=== PATIENT | male | born 1975 | race Hispanic/Latino ===

== ENCOUNTER 2023-05-23 18:31 | Inpatient (IN) | payer OTHER ==
[~2023-05-23] VITALS: Ht 154.9 cm; Wt 34.7 kg
[~2023-05-23 18:31] MED LIST: SODIUM BICARB 8.4% 50ML SYRINGE IVP ONE
[2023-05-23 19:22] LABS: BASOPHILS # (AUTO) 0.01 K/uL (0.00-0.20); BASOPHILS % (AUTO) 0.1 % (0.0-5.0); EOSINOPHILS # (AUTO) 0.04 K/uL (0.00-0.70); EOSINOPHILS % (AUTO) 0.4 % (0.0-8.0); HEMATOCRIT 43.8 % (42-54); IMMATURE GRANULOCYTE ABSOLUTE 0.13 K/uL (0-1); LYMPHOCYTES # (AUTO) 0.9 K/uL (1.0-4.8); LYMPHOCYTES % (AUTO) 8.8 % (21.0-51.0); MEAN CORPUSCULAR HEMOGLOBIN 30.8 pg (27.0-33.0); MEAN CORPUSCULAR HGB CONC 34.9 g/dL (32.0-36.0); MEAN CORPUSCULAR VOLUME 88.1 fL (79-99); MONOCYTES # (AUTO) 0.8 K/uL (0.1-1.0); MONOCYTES % (AUTO) 7.3 % (3.0-13.0); NEUTROPHILS # (AUTO) 8.6 K/uL (1.8-7.7); NEUTROPHILS % (AUTO) 82.2 % (40.0-77.0); PLATELET COUNT (AUTO) 168 K/uL (130-400); RED BLOOD CELL COUNT(AUTO) 4.97 MIL/uL (4.50-6.20); RED CELL DISTRIBUTION WIDTH 11.9 % (11.0-15.5); WHITE BLOOD COUNT (AUTO) 10.4 K/uL (4.8-10.8)
[2023-05-23 19:31] LABS: ABG BASE EXCESS -20.9 mmol/L (-2.0-3.0); ABG HCO3 4.6 mmol/L (21.0-28.0); ABG OXYGEN SATURATION 95.4 % (95.0-99.0); ABG PCO2 < 15 mmHg (35-48); ABG PH 7.186 (7.35-7.450); DEVICE COMMENT RIGHT RAD; HHb 4.5; PO2, ARTERIAL BG 89.1 mmHg (83.0-108.0); VENT MODE, BG ROOM AIR (ROOM AIR)
[2023-05-23 19:47] LABS: ALANINE AMINOTRANSFERASE 33 U/L (12-78); ALBUMIN 3.6 g/dL (3.5-5.0); ASPARTATE AMINOTRANSFERASE 13 U/L (10-37); CREATININE 1.6 mg/dL (0.5-1.5); GLOMERULAR FILTR. RATE CALC 53 mL/min (>90); POTASSIUM 4.7 mmol/L (3.5-5.1); SODIUM SERUM 126 mmol/L (136-145); TOTAL PROTEIN, SERUM 6.9 g/dL (6.0-8.3); UREA NITROGEN, BLOOD 20 mg/dL (7-18)
[2023-05-23 19:48] LABS: CHLORIDE 90 mmol/L (101-111); GLUCOSE,RANDOM 656 mg/dL (70-105)
[2023-05-23] MEDS: 0.9%NACL 1000ML 2,000 ML IV ONE ×2 (19:48)
[2023-05-23 19:50] LABS: CARBON DIOXIDE 6 mmol/L (21-32)
[2023-05-23] MEDS: CEFTRIAXONE 2GM VIAL IVPB STA (19:58)
[2023-05-23] MEDS: INSULIN HUMULIN R 100 UNIT/ML 3ML IV STA (19:59)
[2023-05-23 20:08] LABS: ADD UA MICROSCOPIC YES; APPEARANCE,URINE CLEAR (CLEAR); BILIRUBIN,URINE NEGATIVE (NEGATIVE); COLOR,URINE COLORLESS (YELLOW); GLUCOSE, URINE (UA) >=1000 mg/dL (NEGATIVE); KETONES,URINE 150 mg/dL (NEGATIVE); LEUKOCYTE ESTERASE ,URINE NEGATIVE Leu/uL (NEGATIVE); NITRATE,URINE NEGATIVE (NEGATIVE); PROTEIN,URINE 30 mg/dL (NEGATIVE); UROBILINOGEN,URINE 0.2 mg/dL (0.2-1.0)
[2023-05-23 20:16] LABS: BACTERIA,URINE RARE /HPF (None Seen); MUCUS,URINE RARE LPF (None Seen); RBC,URINE 0-1 /HPF (0-1); WBC,URINE 0-1 /HPF (0-1)
[2023-05-23 20:41] LABS: BAND NEUTROPHILS % (MANUAL) 33 % (0-2); LYMPHOCYTES % (MANUAL) 9 % (22-44); METAMYELOCYTES % 31 % (0-0); MONOCYTES % (MANUAL) 8 % (2-9); SEGMENTED NEUTROPHILS % 19 % (40-70); TOTAL CELLS COUNTED 100
[2023-05-23 20:42] LABS: MAN.DIFF COMMENT-IMPRESSION MANUAL DIFFERENTIAL; PLATELET MORPHOLOGY COMMENT ADEQUATE
[2023-05-23] MEDS: 0.9%NACL 1000ML 1,000 ML IV SCH (21:00)
[2023-05-23] MEDS: MAGNESIUM 2GM PREMIX 50ML 50 ML IV SCH (21:00)
[2023-05-23] MEDS ORDERED: INSULIN REGULAR, HUMAN 3ML 100 UNIT in 0.9%NACL 100ML 99 ML IV SCH (21:11)
[2023-05-23 21:27] LABS: CREATININE 1.3 mg/dL (0.5-1.5); POTASSIUM 3.7 mmol/L (3.5-5.1)
[2023-05-23] MEDS ORDERED: INSULIN REGULAR, HUMAN 3ML 100 UNIT in 0.9%NACL 100ML 100 ML IV SCH (21:30)
[2023-05-23] MEDS ORDERED: D5W-1/2 NS/20MEQ KCL 1,000 ML IV SCH (21:30)
[2023-05-23] MEDS: 0.9%NACL 100ML 100 ML ONE (22:12)
[2023-05-23] MEDS: MAGNESIUM 2GM PREMIX 50ML 50 ML IV ONE (22:12)
[2023-05-23] MEDS ORDERED: MORPHINE 2 MG SYG IV PRN (22:30)
[2023-05-23] MEDS ORDERED: ACETAMINOPHEN 325 MG TAB PO PRN (22:30)
[2023-05-23] MEDS ORDERED: MORPHINE 4 MG SYG IV PRN (22:30)
[2023-05-23 22:40] LABS: SARS-CoV-2, RNA, NAAT NEGATIVE SARS CoV-2 (NEGATIVE)
[2023-05-23 22:43] LABS: RAPID GROUP A STREP positive (NEGATIVE)
[2023-05-23 22:48] LABS: INFLUENZA TYPE A Negative For Type A (NEGATIVE)
[2023-05-23] MEDS: IBUPROFEN 600 MG TABLET PO STA (23:05)
[2023-05-23 23:10] LABS: INFLUENZA TYPE B Positive For Type B (NEGATIVE)
[2023-05-23 23:28] LABS: ABG BASE EXCESS -17.3 mmol/L (-2.0-3.0); ABG HCO3 7.2 mmol/L (21.0-28.0); ABG OXYGEN SATURATION 91.6 % (95.0-99.0); ABG PCO2 17 mmHg (35-48); CARBON MONOXIDE 0.5; DEVICE COMMENT RIGHT RAD; HHb 8.3; PO2, ARTERIAL BG 64.5 mmHg (83.0-108.0); VENT MODE, BG 5LNC (ROOM AIR)
[2023-05-23] MEDS ORDERED: DOXYCYCLINE 100MG+NS 250ML 250 ML IV SCH (23:30)
[2023-05-23 23:37] LABS: CREATININE,URINE RANDOM 20 mg/dL (30-135); SODIUM,URINE RANDOM 29 mmol/l (40-220)
[2023-05-23 23:40] LABS: CREATININE 1.3 mg/dL (0.5-1.5); POTASSIUM 3.8 mmol/L (3.5-5.1)
[2023-05-23] MEDS: ZOSYN 3.375GM +NS 50ML IV SCH (23:50)
[2023-05-23] MEDS: SODIUM BICARB 50MEQ 50ML VIAL IV ONE (23:50)
[2023-05-23] MEDS: ONDANSETRON 4MG INJ IV PRN (23:50)
[2023-05-24] VITALS (101 sets, daily range): BP systolic 83–127; BP diastolic 45–74; PULSE 117–143; RESP 15–51; O2SAT 92–97
[2023-05-24] MEDS ORDERED: GLUCAGON 1MG KIT 1 MG ML IM PRN
[2023-05-24] MEDS ORDERED: DEXTROSE 50%-WATER 50 ML DISP.SYRIN IV PRN
[2023-05-24] MEDS ORDERED: POTASSIUM CHLORIDE 20MEQ/100ML 100 ML IV PRN
[2023-05-24] MEDS ORDERED: IBUPROFEN 200 MG TAB PO PRN
[2023-05-24] MEDS: OSELTAMIVIR PHOSPHATE 75 MG CAP PO ONE
[2023-05-24] MEDS: IBUPROFEN 600 MG TABLET ONE (00:46)
[2023-05-24] MEDS: SODIUM BICARB 50MEQ 50ML VIAL 250 ML ONE (00:47)
[2023-05-24] MEDS: SODIUM BICARB 8.4% 50ML SYRING 150 MEQ in DEXTROSE 5%-WATER 1,000 ML IVP SCH (00:50)
[2023-05-24 01:24] LABS: AMPHET/METH SCREEN,URINE NEGATIVE (NEGATIVE); BARBITURATE SCREEN, URINE NEGATIVE (NEGATIVE); BENZODIAZEPINES SCREEN,URINE NEGATIVE (NEGATIVE); CANNABINOID SCREEN,URINE NEGATIVE (NEGATIVE); COCAINE SCREEN,URINE NEGATIVE (NEGATIVE); OPIATE SCREEN,URINE NEGATIVE (NEGATIVE); PHENCYCLIDINE SCREEN,URINE NEGATIVE (NEGATIVE)
[2023-05-24] MEDS: INSULIN GLARGINE 100 UNITS/ML 10 ML VIAL SQ ONE (01:30)
[2023-05-24] MEDS: LACTATED RINGERS IV ONE (01:35)
[2023-05-24 02:28] LABS: HIV 1&2 ANTIBODY Non-Reactive (Negative); HIV-1 p24 Antigen Non-Reactive (Negative)
[2023-05-24 02:54] LABS: ABG BASE EXCESS -3.2 mmol/L (-2.0-3.0); ABG HCO3 19.2 mmol/L (21.0-28.0); ABG OXYGEN SATURATION 93.9 % (95.0-99.0); ABG PCO2 28 mmHg (35-48); ABG PH 7.453 (7.35-7.450); PO2, ARTERIAL BG 64.5 mmHg (83.0-108.0); VENT MODE, BG BIPAP 10-5 (ROOM AIR)
[2023-05-24] MEDS: DOXYCYCLINE 100MG+NS 250ML 250 ML IV SCH (03:10)
[2023-05-24] MEDS: INSULIN GLARGINE 100 UNITS/ML 10 ML VIAL SQ SCH ×2 (06:44→12:59)
[2023-05-24 07:05] LABS: BASOPHILS # (AUTO) 0.06 K/uL (0.00-0.20); BASOPHILS % (AUTO) 2.4 % (0.0-5.0); HEMATOCRIT 37.1 % (42-54); IMMATURE GRANULOCYTE ABSOLUTE 0.02 K/uL (0-1); LYMPHOCYTES # (AUTO) 0.4 K/uL (1.0-4.8); MEAN CORPUSCULAR HEMOGLOBIN 30.8 pg (27.0-33.0); MEAN CORPUSCULAR HGB CONC 37.5 g/dL (32.0-36.0); MEAN CORPUSCULAR VOLUME 82.3 fL (79-99); MONOCYTES # (AUTO) 0.1 K/uL (0.1-1.0); MONOCYTES % (AUTO) 3.6 % (3.0-13.0); NEUTROPHILS # (AUTO) 1.9 K/uL (1.8-7.7); NEUTROPHILS % (AUTO) 76.2 % (40.0-77.0); PLATELET COUNT (AUTO) 98 K/uL (130-400); RED BLOOD CELL COUNT(AUTO) 4.51 MIL/uL (4.50-6.20); RED CELL DISTRIBUTION WIDTH 11.7 % (11.0-15.5); WHITE BLOOD COUNT (AUTO) 2.5 K/uL (4.8-10.8)
[2023-05-24 08:13] LABS: ABG BASE EXCESS 0.5 mmol/L (-2.0-3.0); ABG HCO3 23.3 mmol/L (21.0-28.0); ABG OXYGEN SATURATION 93.3 % (95.0-99.0); ABG PCO2 33 mmHg (35-48); DEVICE COMMENT LR; PO2, ARTERIAL BG 61.8 mmHg (83.0-108.0); VENT MODE, BG BIPAP10 (ROOM AIR)
[2023-05-24 08:26] LABS: CARBON DIOXIDE 24 mmol/L (21-32); CHLORIDE 110 mmol/L (101-111); CHOLESTEROL 117 mg/dL (<200); CREATININE 0.8 mg/dL (0.5-1.5); GLOMERULAR FILTR. RATE CALC 109 mL/min (>90); GLUCOSE,RANDOM 219 mg/dL (70-105); HDL CHOLESTEROL 42 mg/dL (29-71); LDL DIRECT 46 mg/dL (0-99); SODIUM SERUM 144 mmol/L (136-145); TRIGLYCERIDES 111 mg/dL (30-200); UREA NITROGEN, BLOOD 12 mg/dL (7-18)
[2023-05-24] MEDS: ALPRAZOLAM 0.5 MG TABLET PO SCH (08:39)
[2023-05-24] MEDS: OSELTAMIVIR PHOSPHATE 75 MG CAP PO SCH (08:39)
[2023-05-24] MEDS: FAMOTIDINE 20MG VIAL IV SCH (08:39)
[2023-05-24] MEDS: PANTOPRAZOLE 40 MG/VIAL IVP SCH (08:39)
[2023-05-24 08:40] LABS: ALCOHOL, BLOOD < 3 mg/dL (0-10)
[2023-05-24] MEDS: HEPARIN 5,000 UNIT VIAL SQ SCH (08:49)
[2023-05-24 09:00] LABS: PHOSPHORUS 0.5 mg/dL (2.5-4.9); POTASSIUM 2.3 mmol/L (3.5-5.1)
[2023-05-24] MEDS: POTASSIUM CHLORIDE 10MEQ/100ML 100 ML IV PRN (09:11)
[2023-05-24] MEDS: KCL 20 MEQ ERTAB PO PRN (09:13)
[2023-05-24 09:27] LABS: BAND NEUTROPHILS % (MANUAL) 23 % (0-2); EOSINOPHILS % (MANUAL) 1 % (1-6); LYMPHOCYTES % (MANUAL) 19 % (22-44); MAN.DIFF COMMENT-IMPRESSION MANUAL DIFFERENTIAL; METAMYELOCYTES % 19 % (0-0); MONOCYTES % (MANUAL) 22 % (2-9); MYELOCYTES % 5 % (0-0); OTHER CELLS,MANUAL % 1 (0-0); PLATELET MORPHOLOGY COMMENT DECREASED; REACTIVE LYMPHOCYTES 3 % (0-0); SEGMENTED NEUTROPHILS % 7 % (40-70); TOTAL CELLS COUNTED 100
[2023-05-24 12:10] LABS: CREATININE 0.7 mg/dL (0.5-1.5); POTASSIUM 3.1 mmol/L (3.5-5.1)
[2023-05-24] MEDS: POTASSIUM CHLORIDE 10% ELIXIR 20 MEQ/15 ML UDCUP PO PRN (12:59)
[2023-05-24] MEDS: LEVOFLOXACIN 500 MG/D5W 100 ML 100 ML IV SCH (17:49)
[2023-05-24] MEDS: CEFTRIAXONE 2GM VIAL IVPB SCH (17:50)
[2023-05-24 19:03] LABS: CREATININE 0.8 mg/dL (0.5-1.5); POTASSIUM 3.4 mmol/L (3.5-5.1)
[2023-05-24] MEDS: IPRATROPIUM 0.5 MG/2.5 ML INH IH SCH (19:09)
[2023-05-24] MEDS: ACETYLCYSTEINE 10% 100MG/ML 4ML VIAL IH SCH (19:09)
[2023-05-24] MEDS: MAGNESIUM 2GM PREMIX 50ML 50 ML IV ONE (19:28)
[2023-05-24 21:53] LABS: CREATININE 0.6 mg/dL (0.5-1.5)
[2023-05-24 22:01] LABS: POTASSIUM 2.9 mmol/L (3.5-5.1)
[2023-05-24 23:47] LABS: CHLORIDE,URINE RANDOM 179 mmol/L (110-250); POTASSIUM,URINE RANDOM 79 mmol/L (25-125); SODIUM,URINE RANDOM 100 mmol/l (40-220)
[2023-05-25] VITALS (69 sets, daily range): BP systolic 80–132; BP diastolic 45–88; PULSE 87–122; RESP 17–35; O2SAT 91–96
[2023-05-25] MEDS: INSULIN HUMULIN R 100 UNIT/ML 3ML SQ SCH (00:46)
[2023-05-25] MEDS: ACETAMINOPHEN 325 MG TAB PO PRN (04:42)
[2023-05-25] MEDS: SODIUM CHLORIDE 3% FOR INHALATION 4 ML/AMP VIAL.NEB IH ONE ×2 (07:04→11:46)
[2023-05-25] MEDS ORDERED: ALPRAZOLAM 0.5 MG TABLET PO PRN (08:30)
[2023-05-25 08:39] LABS: CREATININE 0.6 mg/dL (0.5-1.5); THYROID STIMULATING HORMONE 0.57 uIU/mL (0.36-3.74); URIC ACID 1.3 mg/dL (2.6-7.2)
[2023-05-25 08:40] LABS: POTASSIUM 2.7 mmol/L (3.5-5.1)
[2023-05-25] MEDS: THIAMINE HCL 100 MG TABLET PO SCH (08:51)
[2023-05-25] MEDS ORDERED: METF-446 PO (09:13)
[2023-05-25] MEDS ORDERED: GLIM4TAB36 PO (09:13)
[2023-05-25 14:08] LABS: ALBUMIN 1.7 g/dL (3.5-5.0); BILIRUBIN,TOTAL 0.7 mg/dL (0.2-1.0); CREATININE 0.5 mg/dL (0.5-1.5); POTASSIUM 3.1 mmol/L (3.5-5.1); TOTAL PROTEIN, SERUM 4.7 g/dL (6.0-8.3)
[2023-05-25] MEDS: MAGNESIUM 2GM PREMIX 50ML 50 ML IV PRN (17:09)
[2023-05-26] VITALS (30 sets, daily range): BP systolic 105–132; BP diastolic 67–82; PULSE 80–101; RESP 20–35; O2SAT 91–96
[2023-05-26 04:37] LABS: EOSINOPHILS # (AUTO) 0.01 K/uL (0.00-0.70); EOSINOPHILS % (AUTO) 0.1 % (0.0-8.0); HEMATOCRIT 32.3 % (42-54); IMMATURE GRANULOCYTE ABSOLUTE 0.18 K/uL (0-1); LYMPHOCYTES # (AUTO) 0.9 K/uL (1.0-4.8); LYMPHOCYTES % (AUTO) 7.3 % (21.0-51.0); MEAN CORPUSCULAR HEMOGLOBIN 30.4 pg (27.0-33.0); MEAN CORPUSCULAR HGB CONC 36.5 g/dL (32.0-36.0); MEAN CORPUSCULAR VOLUME 83.2 fL (79-99); MONOCYTES # (AUTO) 0.7 K/uL (0.1-1.0); MONOCYTES % (AUTO) 5.6 % (3.0-13.0); NEUTROPHILS # (AUTO) 10.3 K/uL (1.8-7.7); NEUTROPHILS % (AUTO) 85.5 % (40.0-77.0); PLATELET COUNT (AUTO) 74 K/uL (130-400); RED BLOOD CELL COUNT(AUTO) 3.88 MIL/uL (4.50-6.20); RED CELL DISTRIBUTION WIDTH 12.2 % (11.0-15.5)
[2023-05-26 05:13] LABS: ALBUMIN 1.8 g/dL (3.5-5.0); BILIRUBIN,TOTAL 0.7 mg/dL (0.2-1.0); CREATININE 0.5 mg/dL (0.5-1.5); MAGNESIUM 1.7 mg/dL (1.80-2.40); PHOSPHORUS 1.9 mg/dL (2.5-4.9); TOTAL PROTEIN, SERUM 5.1 g/dL (6.0-8.3)
[2023-05-26 05:28] LABS: POTASSIUM 2.8 mmol/L (3.5-5.1)
[2023-05-26] MEDS ORDERED: VANCOMYCIN PROTOCOL PER PHARMACY IV SCH (16:00)
[2023-05-26] MEDS: CEFEPIME HCL 2 GM VIAL IVPB SCH (16:30)
[2023-05-26] MEDS: VANCOMYCIN 750MG VIAL IVPB SCH (16:33)
[2023-05-26 20:00] LABS: POTASSIUM 3.2 mmol/L (3.5-5.1)
[2023-05-26] MEDS: INSULIN GLARGINE 100 UNITS/ML 10 ML VIAL SQ SCH (21:34)
[2023-05-27] VITALS (14 sets, daily range): BP systolic 93–132; BP diastolic 50–83; PULSE 80–104; RESP 9–39; O2SAT 90–97
[2023-05-27 05:39] LABS: BASOPHILS # (AUTO) 0.07 K/uL (0.00-0.20); BASOPHILS % (AUTO) 0.8 % (0.0-5.0); EOSINOPHILS # (AUTO) 0.03 K/uL (0.00-0.70); EOSINOPHILS % (AUTO) 0.3 % (0.0-8.0); HEMATOCRIT 32.4 % (42-54); IMMATURE GRANULOCYTE ABSOLUTE 0.06 K/uL (0-1); LYMPHOCYTES # (AUTO) 1.1 K/uL (1.0-4.8); LYMPHOCYTES % (AUTO) 12.8 % (21.0-51.0); MEAN CORPUSCULAR HEMOGLOBIN 30.9 pg (27.0-33.0); MEAN CORPUSCULAR HGB CONC 36.4 g/dL (32.0-36.0); MEAN CORPUSCULAR VOLUME 84.8 fL (79-99); MONOCYTES % (AUTO) 12.1 % (3.0-13.0); NEUTROPHILS # (AUTO) 6.3 K/uL (1.8-7.7); NEUTROPHILS % (AUTO) 73.3 % (40.0-77.0); PLATELET COUNT (AUTO) 101 K/uL (130-400); RED BLOOD CELL COUNT(AUTO) 3.82 MIL/uL (4.50-6.20); RED CELL DISTRIBUTION WIDTH 12.3 % (11.0-15.5); WHITE BLOOD COUNT (AUTO) 8.6 K/uL (4.8-10.8)
[2023-05-27 05:50] LABS: B-TYPE NATRIURETIC PEPTIDE 119 pg/mL (0-100)
[2023-05-27 06:02] LABS: ALBUMIN 1.7 g/dL (3.5-5.0); BILIRUBIN,TOTAL 1.1 mg/dL (0.2-1.0); CREATININE 0.6 mg/dL (0.5-1.5); POTASSIUM 3.3 mmol/L (3.5-5.1); THYROID STIMULATING HORMONE 1.31 uIU/mL (0.36-3.74); TOTAL PROTEIN, SERUM 5.4 g/dL (6.0-8.3)
[2023-05-27 08:08] LABS: ABG BASE EXCESS 3.1 mmol/L (-2.0-3.0); ABG HCO3 26.1 mmol/L (21.0-28.0); ABG OXYGEN SATURATION 96.6 % (95.0-99.0); ABG PCO2 35 mmHg (35-48); ABG PH 7.491 (7.35-7.450); DEVICE COMMENT RR ROSIE, RN; PO2, ARTERIAL BG 79.3 mmHg (83.0-108.0); VENT MODE, BG 10 L HFNC (ROOM AIR)
[2023-05-27 10:20] LABS: INR <= 0.93 (0.85-1.15); PROTHROMBIN TIME 10.6 SEC (9.6-11.6)
[2023-05-27 10:21] LABS: PARTIAL THROMBOPLASTIN TIME 31.6 SEC (26.3-35.5)
[2023-05-27] MEDS ORDERED: AMP/SULBAC 3GM+NS 100ML 100 ML IV SCH (19:00)
[2023-05-27] MEDS: BUDESONIDE 0.5 MG/2 ML INH IH SCH (19:15)
[2023-05-27] MEDS: AMP/SULBAC 3GM+NS 100ML 100 ML IV SCH (22:31)
[2023-05-28] VITALS (18 sets, daily range): BP systolic 105–158; BP diastolic 56–79; PULSE 70–107; RESP 17–47; O2SAT 91–97
[2023-05-28 03:09] LABS: QUANTIFERON MITOGEN VALUE 0.74 IU/mL (.); QUANTIFERON NIL VALUE 0.02 IU/mL (.)
[2023-05-28 05:46] LABS: BASOPHILS # (AUTO) 0.06 K/uL (0.00-0.20); BASOPHILS % (AUTO) 0.4 % (0.0-5.0); HEMATOCRIT 34.2 % (42-54); LYMPHOCYTES % (AUTO) 5.8 % (21.0-51.0); MEAN CORPUSCULAR HEMOGLOBIN 30.6 pg (27.0-33.0); MEAN CORPUSCULAR HGB CONC 36.5 g/dL (32.0-36.0); MEAN CORPUSCULAR VOLUME 83.8 fL (79-99); MONOCYTES # (AUTO) 1.6 K/uL (0.1-1.0); MONOCYTES % (AUTO) 9.9 % (3.0-13.0); NEUTROPHILS # (AUTO) 13.7 K/uL (1.8-7.7); NEUTROPHILS % (AUTO) 82.7 % (40.0-77.0); PLATELET COUNT (AUTO) 156 K/uL (130-400); RED BLOOD CELL COUNT(AUTO) 4.08 MIL/uL (4.50-6.20); RED CELL DISTRIBUTION WIDTH 12.3 % (11.0-15.5); WHITE BLOOD COUNT (AUTO) 16.5 K/uL (4.8-10.8)
[2023-05-28 06:02] LABS: ALBUMIN 1.7 g/dL (3.5-5.0); BILIRUBIN,TOTAL 0.9 mg/dL (0.2-1.0); CREATININE 0.5 mg/dL (0.5-1.5); PHOSPHORUS 3.5 mg/dL (2.5-4.9); TOTAL PROTEIN, SERUM 6.1 g/dL (6.0-8.3)
[2023-05-28 06:05] LABS: POTASSIUM 2.9 mmol/L (3.5-5.1)
[2023-05-28 07:19] LABS: RHEUMATOID ARTHRITIS FACTOR 23.3 IU/mL (<14.0)
[2023-05-28 08:15] LABS: MYOGLOBIN, SERUM 43 ng/mL (28-72)
[2023-05-28] MEDS: CEFAZOLIN SODIUM 2 GM VIAL IVPB SCH (13:39)
[2023-05-28 14:05] LABS: INR <= 0.93 (0.85-1.15); PROTHROMBIN TIME 10.8 SEC (9.6-11.6)
[2023-05-28 14:06] LABS: PARTIAL THROMBOPLASTIN TIME 33.5 SEC (26.3-35.5)
[2023-05-28] MEDS: 0.9%NACL 10ML VIAL IV SCH (21:05)
[2023-05-29] VITALS (55 sets, daily range): BP systolic 85–129; BP diastolic 48–76; PULSE 86–130; RESP 15–34; TEMP 99; O2SAT 91–100
[2023-05-29 04:02] LABS: BASOPHILS # (AUTO) 0.06 K/uL (0.00-0.20); BASOPHILS % (AUTO) 0.4 % (0.0-5.0); EOSINOPHILS # (AUTO) 0.02 K/uL (0.00-0.70); EOSINOPHILS % (AUTO) 0.1 % (0.0-8.0); HEMATOCRIT 32.2 % (42-54); IMMATURE GRANULOCYTE ABSOLUTE 0.17 K/uL (0-1); LYMPHOCYTES # (AUTO) 1.1 K/uL (1.0-4.8); MEAN CORPUSCULAR HEMOGLOBIN 30.6 pg (27.0-33.0); MEAN CORPUSCULAR HGB CONC 35.7 g/dL (32.0-36.0); MEAN CORPUSCULAR VOLUME 85.6 fL (79-99); MONOCYTES # (AUTO) 1.2 K/uL (0.1-1.0); MONOCYTES % (AUTO) 7.2 % (3.0-13.0); NEUTROPHILS # (AUTO) 13.4 K/uL (1.8-7.7); NEUTROPHILS % (AUTO) 84.2 % (40.0-77.0); PLATELET COUNT (AUTO) 233 K/uL (130-400); RED BLOOD CELL COUNT(AUTO) 3.76 MIL/uL (4.50-6.20); RED CELL DISTRIBUTION WIDTH 12.4 % (11.0-15.5); WHITE BLOOD COUNT (AUTO) 15.9 K/uL (4.8-10.8)
[2023-05-29 04:12] LABS: CREATININE 0.5 mg/dL (0.5-1.5); MAGNESIUM 1.9 mg/dL (1.80-2.40); POTASSIUM 3.2 mmol/L (3.5-5.1)
[2023-05-29] MEDS: POTASSIUM CHLORIDE 20MEQ/100ML 100 ML IV PRN (05:44)
[2023-05-29] MEDS ORDERED: GLUCAGON 1MG KIT 1 MG ML IM PRN (15:00)
[2023-05-29 15:14] LABS: ATYPICAL P-ANCA AB <1:20 titer (Neg:<1:20); CYTOPLASMIC (C-ANCA) AB, IGG <1:20 titer (Neg:<1:20)
[2023-05-29] MEDS ORDERED: SUCCINYLCHOLINE CHLORIDE 20 MG/ML 10 ML VIAL ONE (15:20)
[2023-05-29] MEDS ORDERED: PROPOFOL 10 MG/ML 20ML VIAL IV ONE ×2 (15:20→16:03)
[2023-05-29] MEDS ORDERED: EPINEPHRINE PF 1MG (1:1,000) 1 MG/ML AMP ONE (15:52)
[2023-05-29] MEDS ORDERED: EPHEDRINE SULFATE 50 MG/ML AMPULE ONE (15:54)
[2023-05-29] MEDS ORDERED: PHENYLEPHRINE HCL 10 MG/ML 1ML VIAL IV ONE (15:57)
[2023-05-29] MEDS ORDERED: ROCURONIUM BROMIDE 10MG/1ML 5ML VL ONE (16:02)
[2023-05-29] MEDS: CHLORHEXIDINE GLUCONATE 15 ML MOUTHWASH MM SCH (17:00)
[2023-05-29 17:08] LABS: BASOPHILS # (AUTO) 0.06 K/uL (0.00-0.20); BASOPHILS % (AUTO) 0.2 % (0.0-5.0); EOSINOPHILS # (AUTO) 0.01 K/uL (0.00-0.70); HEMATOCRIT 27.6 % (42-54); IMMATURE GRANULOCYTE ABSOLUTE 0.31 K/uL (0-1); LYMPHOCYTES # (AUTO) 0.8 K/uL (1.0-4.8); LYMPHOCYTES % (AUTO) 3.2 % (21.0-51.0); MEAN CORPUSCULAR HEMOGLOBIN 30.6 pg (27.0-33.0); MEAN CORPUSCULAR HGB CONC 35.9 g/dL (32.0-36.0); MEAN CORPUSCULAR VOLUME 85.2 fL (79-99); MONOCYTES # (AUTO) 0.9 K/uL (0.1-1.0); MONOCYTES % (AUTO) 3.9 % (3.0-13.0); NEUTROPHILS % (AUTO) 91.4 % (40.0-77.0); PLATELET COUNT (AUTO) 266 K/uL (130-400); RED BLOOD CELL COUNT(AUTO) 3.24 MIL/uL (4.50-6.20); RED CELL DISTRIBUTION WIDTH 12.6 % (11.0-15.5)
[2023-05-29 17:22] LABS: INR 0.97 (0.85-1.15); PROTHROMBIN TIME 11.3 SEC (9.6-11.6)
[2023-05-29 17:23] LABS: PARTIAL THROMBOPLASTIN TIME 30.3 SEC (26.3-35.5)
[2023-05-29 17:25] LABS: ABG BASE EXCESS 4.3 mmol/L (-2.0-3.0); ABG HCO3 28.4 mmol/L (21.0-28.0); ABG OXYGEN SATURATION 92.8 % (95.0-99.0); ABG PCO2 41 mmHg (35-48); ABG PH 7.464 (7.35-7.450); CARBON MONOXIDE 0.3; HHb 7.2; PO2, ARTERIAL BG 65.3 mmHg (83.0-108.0); VENT MODE, BG AC (ROOM AIR)
[2023-05-29] MEDS: PROPOFOL 1000 MG/100 ML 100 ML IV ONE (17:25)
[2023-05-29 17:26] LABS: CREATININE 0.5 mg/dL (0.5-1.5); POTASSIUM 3.3 mmol/L (3.5-5.1)
[2023-05-29] MEDS: PHENYLEPHRINE HCL 100 MG in 0.9% NACL 250ML 240 ML IV PRN (17:29)
[2023-05-29] MEDS: 0.9%NACL 1000ML 1,000 ML IV SCH (17:30)
[2023-05-29 17:31] LABS: ALBUMIN 1.2 g/dL (3.5-5.0); BILIRUBIN,TOTAL 0.8 mg/dL (0.2-1.0); TOTAL PROTEIN, SERUM 5.2 g/dL (6.0-8.3)
[2023-05-29] MEDS: SODIUM BICARB 50MEQ 50ML VIAL 50 ML ONE (17:51)
[2023-05-29] MEDS: CALCIUM GLUC 1GM/10ML VIAL ONE ×2 (17:52→17:53)
[2023-05-29 19:10] LABS: DRVVT-LUPUS ANTICOAGULANT 35.9 sec (0.0-47.0)
[2023-05-29] MEDS: ARTIFICIAL TEARS 3.5 GM OINTMENT OU SCH (21:05)
[2023-05-30] VITALS (89 sets, daily range): BP systolic 98–144; BP diastolic 47–85; PULSE 84–109; RESP 15–39; O2SAT 94–100
[2023-05-30] MEDS: PROPOFOL 1000 MG/100 ML 100 ML IV PRN (04:24)
[2023-05-30 04:29] LABS: BASOPHILS # (AUTO) 0.04 K/uL (0.00-0.20); BASOPHILS % (AUTO) 0.2 % (0.0-5.0); EOSINOPHILS # (AUTO) 0.01 K/uL (0.00-0.70); EOSINOPHILS % (AUTO) 0.1 % (0.0-8.0); HEMATOCRIT 27.2 % (42-54); IMMATURE GRANULOCYTE ABSOLUTE 0.19 K/uL (0-1); LYMPHOCYTES # (AUTO) 1.1 K/uL (1.0-4.8); LYMPHOCYTES % (AUTO) 5.4 % (21.0-51.0); MEAN CORPUSCULAR HEMOGLOBIN 30.4 pg (27.0-33.0); MEAN CORPUSCULAR HGB CONC 34.9 g/dL (32.0-36.0); MEAN CORPUSCULAR VOLUME 87.2 fL (79-99); MONOCYTES # (AUTO) 0.9 K/uL (0.1-1.0); MONOCYTES % (AUTO) 4.7 % (3.0-13.0); NEUTROPHILS # (AUTO) 17.1 K/uL (1.8-7.7); NEUTROPHILS % (AUTO) 88.6 % (40.0-77.0); PLATELET COUNT (AUTO) 338 K/uL (130-400); RED BLOOD CELL COUNT(AUTO) 3.12 MIL/uL (4.50-6.20); RED CELL DISTRIBUTION WIDTH 12.6 % (11.0-15.5); WHITE BLOOD COUNT (AUTO) 19.3 K/uL (4.8-10.8)
[2023-05-30 04:45] LABS: CREATININE 0.5 mg/dL (0.5-1.5); MAGNESIUM 1.9 mg/dL (1.80-2.40)
[2023-05-30] MEDS: DEXTROSE 50%-WATER 50 ML DISP.SYRIN IV PRN (05:17)
[2023-05-30] MEDS: CALCIUM GLUC 1GM 2 GM in 0.9%NACL 100ML 100 ML IV SCH (06:03)
[2023-05-30] MEDS: FLUCONAZOLE 200 MG/NS 100 ML 100 ML IV SCH (08:27)
[2023-05-30 10:20] LABS: ABG BASE EXCESS 7.8 mmol/L (-2.0-3.0); ABG OXYGEN SATURATION 95.2 % (95.0-99.0); ABG PCO2 38 mmHg (35-48); ABG PH 7.526 (7.35-7.450); CARBON MONOXIDE 0.8; CPAP, BG 5 cm H2O; DEVICE COMMENT RN; HHb 4.8; PO2, ARTERIAL BG 75.1 mmHg (83.0-108.0)
[2023-05-30] MEDS: ENOXAPARIN SODIUM 30 MG/0.3 ML SQ ONE (15:08)
[2023-05-31] VITALS (37 sets, daily range): BP systolic 84–121; BP diastolic 39–74; PULSE 71–99; RESP 17–34; O2SAT 94–97
[2023-05-31 05:26] LABS: BASOPHILS # (AUTO) 0.02 K/uL (0.00-0.20); BASOPHILS % (AUTO) 0.1 % (0.0-5.0); EOSINOPHILS # (AUTO) 0.01 K/uL (0.00-0.70); HEMATOCRIT 25.3 % (42-54); IMMATURE GRANULOCYTE ABSOLUTE 0.19 K/uL (0-1); LYMPHOCYTES # (AUTO) 0.9 K/uL (1.0-4.8); LYMPHOCYTES % (AUTO) 4.1 % (21.0-51.0); MEAN CORPUSCULAR HEMOGLOBIN 30.6 pg (27.0-33.0); MEAN CORPUSCULAR HGB CONC 34.8 g/dL (32.0-36.0); MEAN CORPUSCULAR VOLUME 87.8 fL (79-99); MONOCYTES # (AUTO) 0.8 K/uL (0.1-1.0); MONOCYTES % (AUTO) 3.4 % (3.0-13.0); NEUTROPHILS # (AUTO) 19.9 K/uL (1.8-7.7); NEUTROPHILS % (AUTO) 91.5 % (40.0-77.0); PLATELET COUNT (AUTO) 356 K/uL (130-400); RED BLOOD CELL COUNT(AUTO) 2.88 MIL/uL (4.50-6.20); RED CELL DISTRIBUTION WIDTH 12.3 % (11.0-15.5); WHITE BLOOD COUNT (AUTO) 21.8 K/uL (4.8-10.8)
[2023-05-31 05:55] LABS: ALBUMIN 1.2 g/dL (3.5-5.0); BILIRUBIN,TOTAL 0.8 mg/dL (0.2-1.0); CREATININE 0.4 mg/dL (0.5-1.5); MAGNESIUM 1.7 mg/dL (1.80-2.40); PHOSPHORUS 3.6 mg/dL (2.5-4.9); POTASSIUM 3.1 mmol/L (3.5-5.1); TOTAL PROTEIN, SERUM 5.6 g/dL (6.0-8.3)
[2023-05-31 07:22] LABS: ABG HCO3 27.3 mmol/L (21.0-28.0); ABG OXYGEN SATURATION 96.2 % (95.0-99.0); ABG PCO2 37 mmHg (35-48); ABG PH 7.491 (7.35-7.450); DEVICE COMMENT RR; PO2, ARTERIAL BG 75.9 mmHg (83.0-108.0); VENT MODE, BG RA (ROOM AIR)
[2023-05-31] MEDS: ENOXAPARIN SODIUM 30 MG/0.3 ML SQ SCH (08:58)
[2023-06-01] VITALS (35 sets, daily range): BP systolic 105–141; BP diastolic 54–72; PULSE 77–98; RESP 14–36; O2SAT 94–100
[2023-06-01 05:32] LABS: BASOPHILS # (AUTO) 0.02 K/uL (0.00-0.20); BASOPHILS % (AUTO) 0.1 % (0.0-5.0); EOSINOPHILS # (AUTO) 0.08 K/uL (0.00-0.70); EOSINOPHILS % (AUTO) 0.5 % (0.0-8.0); HEMATOCRIT 26.3 % (42-54); IMMATURE GRANULOCYTE ABSOLUTE 0.12 K/uL (0-1); LYMPHOCYTES # (AUTO) 1.1 K/uL (1.0-4.8); LYMPHOCYTES % (AUTO) 6.1 % (21.0-51.0); MEAN CORPUSCULAR HEMOGLOBIN 30.5 pg (27.0-33.0); MEAN CORPUSCULAR HGB CONC 34.6 g/dL (32.0-36.0); MEAN CORPUSCULAR VOLUME 88.3 fL (79-99); MONOCYTES # (AUTO) 0.6 K/uL (0.1-1.0); MONOCYTES % (AUTO) 3.5 % (3.0-13.0); NEUTROPHILS # (AUTO) 15.8 K/uL (1.8-7.7); NEUTROPHILS % (AUTO) 89.1 % (40.0-77.0); PLATELET COUNT (AUTO) 510 K/uL (130-400); RED BLOOD CELL COUNT(AUTO) 2.98 MIL/uL (4.50-6.20); RED CELL DISTRIBUTION WIDTH 12.2 % (11.0-15.5); WHITE BLOOD COUNT (AUTO) 17.7 K/uL (4.8-10.8)
[2023-06-01 05:41] LABS: WBC MORPHOLOGY CONSISTENT W/DIFF
[2023-06-01 05:54] LABS: ALBUMIN 1.2 g/dL (3.5-5.0); BILIRUBIN,TOTAL 0.6 mg/dL (0.2-1.0); CREATININE 0.5 mg/dL (0.5-1.5); TOTAL PROTEIN, SERUM 5.7 g/dL (6.0-8.3)
[2023-06-01] MEDS: LACTOBACILLUS RHAMNOSUS GG 1 EACH CAP.SPRINK PO ONE (10:30)
[2023-06-01] MEDS: MULTIVITAMIN TABLET PO ONE (10:30)
[2023-06-01] MEDS: ASCORBIC ACID 500 MG TAB PO ONE (10:30)
[2023-06-01] MEDS: ZINC SULFATE 220 CAPSULE PO ONE (10:30)
[2023-06-01] MEDS: INSULIN HUMULIN R 100 UNIT/ML 3ML SQ SCH (10:49)
[2023-06-01] MEDS: ASCORBIC ACID 500 MG TAB PO SCH (21:18)
[2023-06-02] VITALS (34 sets, daily range): BP systolic 96–140; BP diastolic 48–81; PULSE 75–114; RESP 19–36; O2SAT 83–100
[2023-06-02 06:33] LABS: BASOPHILS # (AUTO) 0.01 K/uL (0.00-0.20); BASOPHILS % (AUTO) 0.1 % (0.0-5.0); EOSINOPHILS # (AUTO) 0.09 K/uL (0.00-0.70); EOSINOPHILS % (AUTO) 0.6 % (0.0-8.0); HEMATOCRIT 26.5 % (42-54); IMMATURE GRANULOCYTE ABSOLUTE 0.09 K/uL (0-1); LYMPHOCYTES % (AUTO) 6.5 % (21.0-51.0); MEAN CORPUSCULAR HEMOGLOBIN 30.6 pg (27.0-33.0); MEAN CORPUSCULAR HGB CONC 35.1 g/dL (32.0-36.0); MEAN CORPUSCULAR VOLUME 87.2 fL (79-99); MONOCYTES # (AUTO) 0.6 K/uL (0.1-1.0); MONOCYTES % (AUTO) 3.8 % (3.0-13.0); NEUTROPHILS # (AUTO) 13.1 K/uL (1.8-7.7); NEUTROPHILS % (AUTO) 88.4 % (40.0-77.0); PLATELET COUNT (AUTO) 594 K/uL (130-400); RED BLOOD CELL COUNT(AUTO) 3.04 MIL/uL (4.50-6.20); RED CELL DISTRIBUTION WIDTH 12.1 % (11.0-15.5); WHITE BLOOD COUNT (AUTO) 14.9 K/uL (4.8-10.8)
[2023-06-02 06:46] LABS: ALBUMIN 1.3 g/dL (3.5-5.0); BILIRUBIN,TOTAL 0.6 mg/dL (0.2-1.0); CREATININE 0.6 mg/dL (0.5-1.5); POTASSIUM 3.8 mmol/L (3.5-5.1); TOTAL PROTEIN, SERUM 6.1 g/dL (6.0-8.3)
[2023-06-02] MEDS: LACTOBACILLUS RHAMNOSUS GG 1 EACH CAP.SPRINK PO SCH (08:21)
[2023-06-02] MEDS: MULTIVITAMIN TABLET PO SCH (08:22)
[2023-06-02] MEDS: PANTOPRAZOLE 40 MG TAB DR PO SCH (08:22)
[2023-06-02] MEDS: ZINC SULFATE 220 CAPSULE PO SCH (08:22)
[2023-06-03] VITALS (21 sets, daily range): BP systolic 93–118; BP diastolic 55–70; PULSE 78–117; RESP 14–36; O2SAT 93–98
[2023-06-03 04:36] LABS: HEMATOCRIT 26.6 % (42-54); MEAN CORPUSCULAR HEMOGLOBIN 30.9 pg (27.0-33.0); MEAN CORPUSCULAR VOLUME 88.4 fL (79-99); PLATELET COUNT (AUTO) 573 K/uL (130-400); RED BLOOD CELL COUNT(AUTO) 3.01 MIL/uL (4.50-6.20); RED CELL DISTRIBUTION WIDTH 11.8 % (11.0-15.5); WHITE BLOOD COUNT (AUTO) 15.9 K/uL (4.8-10.8)
[2023-06-03 04:57] LABS: ALBUMIN 1.4 g/dL (3.5-5.0); BILIRUBIN,TOTAL 0.5 mg/dL (0.2-1.0); CREATININE 0.5 mg/dL (0.5-1.5); MAGNESIUM 1.7 mg/dL (1.80-2.40); PHOSPHORUS 3.1 mg/dL (2.5-4.9); POTASSIUM 3.6 mmol/L (3.5-5.1); TOTAL PROTEIN, SERUM 6.3 g/dL (6.0-8.3)
[2023-06-03 05:46] LABS: BAND NEUTROPHILS % (MANUAL) 4 % (0-2); EOSINOPHILS % (MANUAL) 1 % (1-6); LYMPHOCYTES % (MANUAL) 6 % (22-44); MAN.DIFF COMMENT-IMPRESSION MANUAL DIFFERENTIAL; MONOCYTES % (MANUAL) 5 % (2-9); PLATELET MORPHOLOGY COMMENT INCREASED; REACTIVE LYMPHOCYTES 1 % (0-0); SEGMENTED NEUTROPHILS % 83 % (40-70); TOTAL CELLS COUNTED 100
[2023-06-03] MEDS: 0.9%NACL 1000ML 1,137 ML IV ONE (09:01)
[2023-06-03] MEDS: CEFAZOLIN SODIUM 2 GM VIAL IVPB SCH (10:03)
[2023-06-03 17:10] LABS: ALPHA-1-ANTITRYPSIN 237 mg/dL (101-187)
[2023-06-04] VITALS (21 sets, daily range): BP systolic 100–151; BP diastolic 53–72; PULSE 76–108; RESP 16–30; O2SAT 95–98
[2023-06-04 04:40] LABS: BASOPHILS # (AUTO) 0.04 K/uL (0.00-0.20); BASOPHILS % (AUTO) 0.3 % (0.0-5.0); EOSINOPHILS % (AUTO) 0.6 % (0.0-8.0); HEMATOCRIT 25.1 % (42-54); IMMATURE GRANULOCYTE ABSOLUTE 0.12 K/uL (0-1); LYMPHOCYTES # (AUTO) 1.1 K/uL (1.0-4.8); LYMPHOCYTES % (AUTO) 6.8 % (21.0-51.0); MEAN CORPUSCULAR HEMOGLOBIN 30.1 pg (27.0-33.0); MEAN CORPUSCULAR HGB CONC 35.1 g/dL (32.0-36.0); MONOCYTES # (AUTO) 0.8 K/uL (0.1-1.0); NEUTROPHILS # (AUTO) 13.4 K/uL (1.8-7.7); NEUTROPHILS % (AUTO) 86.5 % (40.0-77.0); PLATELET COUNT (AUTO) 678 K/uL (130-400); RED BLOOD CELL COUNT(AUTO) 2.92 MIL/uL (4.50-6.20); RED CELL DISTRIBUTION WIDTH 11.9 % (11.0-15.5); WHITE BLOOD COUNT (AUTO) 15.5 K/uL (4.8-10.8)
[2023-06-04 04:56] LABS: ALBUMIN 1.5 g/dL (3.5-5.0); BILIRUBIN,TOTAL 0.6 mg/dL (0.2-1.0); CREATININE 0.5 mg/dL (0.5-1.5); TOTAL PROTEIN, SERUM 6.4 g/dL (6.0-8.3)
[2023-06-04] MEDS: ACETYLCYSTEINE 10% 100MG/ML 4ML VIAL IH SCH (23:53)
[2023-06-05] VITALS (13 sets, daily range): BP systolic 102–109; BP diastolic 56–69; PULSE 85–99; RESP 16–24; O2SAT 93–97
[2023-06-05 03:50] LABS: HEMATOCRIT 25.9 % (42-54); MEAN CORPUSCULAR HEMOGLOBIN 30.7 pg (27.0-33.0); MEAN CORPUSCULAR HGB CONC 34.7 g/dL (32.0-36.0); MEAN CORPUSCULAR VOLUME 88.4 fL (79-99); RED BLOOD CELL COUNT(AUTO) 2.93 MIL/uL (4.50-6.20); WHITE BLOOD COUNT (AUTO) 13.4 K/uL (4.8-10.8)
[2023-06-05 03:56] LABS: ALBUMIN 1.5 g/dL (3.5-5.0); BILIRUBIN,TOTAL 0.4 mg/dL (0.2-1.0); CREATININE 0.7 mg/dL (0.5-1.5); POTASSIUM 3.7 mmol/L (3.5-5.1); TOTAL PROTEIN, SERUM 6.6 g/dL (6.0-8.3)
[2023-06-05 04:15] LABS: HIV 1&2 ANTIBODY Non-Reactive (Negative); HIV-1 p24 Antigen Non-Reactive (Negative)
[2023-06-06] VITALS (15 sets, daily range): BP systolic 100–124; BP diastolic 57–68; PULSE 86–103; RESP 18–28; O2SAT 92–96
[2023-06-06 06:08] LABS: BASOPHILS # (AUTO) 0.07 K/uL (0.00-0.20); BASOPHILS % (AUTO) 0.6 % (0.0-5.0); EOSINOPHILS # (AUTO) 0.17 K/uL (0.00-0.70); EOSINOPHILS % (AUTO) 1.4 % (0.0-8.0); HEMATOCRIT 25.9 % (42-54); IMMATURE GRANULOCYTE ABSOLUTE 0.07 K/uL (0-1); LYMPHOCYTES # (AUTO) 1.1 K/uL (1.0-4.8); LYMPHOCYTES % (AUTO) 8.9 % (21.0-51.0); MEAN CORPUSCULAR HEMOGLOBIN 29.7 pg (27.0-33.0); MEAN CORPUSCULAR HGB CONC 34.7 g/dL (32.0-36.0); MEAN CORPUSCULAR VOLUME 85.5 fL (79-99); MONOCYTES # (AUTO) 0.9 K/uL (0.1-1.0); MONOCYTES % (AUTO) 7.9 % (3.0-13.0); NEUTROPHILS # (AUTO) 9.5 K/uL (1.8-7.7); NEUTROPHILS % (AUTO) 80.6 % (40.0-77.0); PLATELET COUNT (AUTO) 684 K/uL (130-400); RED BLOOD CELL COUNT(AUTO) 3.03 MIL/uL (4.50-6.20); RED CELL DISTRIBUTION WIDTH 11.9 % (11.0-15.5); WHITE BLOOD COUNT (AUTO) 11.8 K/uL (4.8-10.8)
[2023-06-06 06:22] LABS: CREATININE 0.5 mg/dL (0.5-1.5); MAGNESIUM 1.8 mg/dL (1.80-2.40); PHOSPHORUS 2.8 mg/dL (2.5-4.9)
[2023-06-07] VITALS (15 sets, daily range): BP systolic 98–110; BP diastolic 52–71; PULSE 58–92; RESP 18–20; TEMP 97.5; O2SAT 93–96
[2023-06-07 05:30] LABS: BASOPHILS # (AUTO) 0.06 K/uL (0.00-0.20); BASOPHILS % (AUTO) 0.5 % (0.0-5.0); EOSINOPHILS # (AUTO) 0.06 K/uL (0.00-0.70); EOSINOPHILS % (AUTO) 0.5 % (0.0-8.0); HEMATOCRIT 25.3 % (42-54); IMMATURE GRANULOCYTE ABSOLUTE 0.08 K/uL (0-1); LYMPHOCYTES # (AUTO) 0.8 K/uL (1.0-4.8); LYMPHOCYTES % (AUTO) 6.5 % (21.0-51.0); MEAN CORPUSCULAR HEMOGLOBIN 29.6 pg (27.0-33.0); MEAN CORPUSCULAR VOLUME 86.9 fL (79-99); MONOCYTES # (AUTO) 0.9 K/uL (0.1-1.0); MONOCYTES % (AUTO) 7.5 % (3.0-13.0); NEUTROPHILS % (AUTO) 84.3 % (40.0-77.0); PLATELET COUNT (AUTO) 656 K/uL (130-400); RED BLOOD CELL COUNT(AUTO) 2.91 MIL/uL (4.50-6.20); RED CELL DISTRIBUTION WIDTH 11.9 % (11.0-15.5); WHITE BLOOD COUNT (AUTO) 11.9 K/uL (4.8-10.8)
[2023-06-07 05:53] LABS: CREATININE 0.5 mg/dL (0.5-1.5); POTASSIUM 3.7 mmol/L (3.5-5.1)
[2023-06-08] VITALS (15 sets, daily range): BP systolic 96–108; BP diastolic 56–70; PULSE 90–120; RESP 18–24; O2SAT 92–98
[2023-06-08 03:40] LABS: BASOPHILS # (AUTO) 0.09 K/uL (0.00-0.20); EOSINOPHILS # (AUTO) 0.22 K/uL (0.00-0.70); EOSINOPHILS % (AUTO) 2.4 % (0.0-8.0); HEMATOCRIT 26.1 % (42-54); IMMATURE GRANULOCYTE ABSOLUTE 0.03 K/uL (0-1); LYMPHOCYTES # (AUTO) 1.2 K/uL (1.0-4.8); LYMPHOCYTES % (AUTO) 13.4 % (21.0-51.0); MEAN CORPUSCULAR HEMOGLOBIN 29.9 pg (27.0-33.0); MEAN CORPUSCULAR HGB CONC 34.9 g/dL (32.0-36.0); MEAN CORPUSCULAR VOLUME 85.9 fL (79-99); MONOCYTES # (AUTO) 0.8 K/uL (0.1-1.0); MONOCYTES % (AUTO) 8.8 % (3.0-13.0); NEUTROPHILS # (AUTO) 6.8 K/uL (1.8-7.7); NEUTROPHILS % (AUTO) 74.1 % (40.0-77.0); RED BLOOD CELL COUNT(AUTO) 3.04 MIL/uL (4.50-6.20); RED CELL DISTRIBUTION WIDTH 12.1 % (11.0-15.5); WHITE BLOOD COUNT (AUTO) 9.2 K/uL (4.8-10.8)
[2023-06-08 03:46] LABS: PLATELET COUNT (AUTO) 716 K/uL (130-400)
[2023-06-08 03:51] LABS: CREATININE 0.6 mg/dL (0.5-1.5); POTASSIUM 4.1 mmol/L (3.5-5.1)
[2023-06-09] VITALS (16 sets, daily range): BP systolic 88–97; BP diastolic 49–64; PULSE 103–120; RESP 18–22; O2SAT 86–96
[2023-06-09] MEDS ORDERED: PHARMACY COMMUNICATION MISC SCH (21:00)
[2023-06-09] MEDS ORDERED: COMPOUND PO MISCELLANEOUS 1 EACH MISC MISC PRN (22:00)
[2023-06-10] VITALS (14 sets, daily range): BP systolic 90–107; BP diastolic 53–68; PULSE 90–118; RESP 17–20; O2SAT 92–98
[2023-06-10] MEDS: VANCOMYCIN 250MG/5ML ORAL SOLUTION 40ML PO SCH (00:43)
[2023-06-10 05:28] LABS: MEAN CORPUSCULAR HEMOGLOBIN 29.4 pg (27.0-33.0); MEAN CORPUSCULAR HGB CONC 34.6 g/dL (32.0-36.0); MEAN CORPUSCULAR VOLUME 84.8 fL (79-99); RED BLOOD CELL COUNT(AUTO) 3.3 MIL/uL (4.50-6.20); RED CELL DISTRIBUTION WIDTH 12.5 % (11.0-15.5); WHITE BLOOD COUNT (AUTO) 17.1 K/uL (4.8-10.8)
[2023-06-10 05:38] LABS: ALBUMIN 1.7 g/dL (3.5-5.0); BILIRUBIN,TOTAL 0.3 mg/dL (0.2-1.0); CREATININE 0.6 mg/dL (0.5-1.5); MAGNESIUM 1.6 mg/dL (1.80-2.40); POTASSIUM 4.1 mmol/L (3.5-5.1); TOTAL PROTEIN, SERUM 6.8 g/dL (6.0-8.3)
[2023-06-10] MEDS ORDERED: MAGNESIUM 2GM PREMIX 50ML 50 ML IV SCH (14:30)
[2023-06-11] VITALS (13 sets, daily range): BP systolic 85–125; BP diastolic 58–66; PULSE 91–101; RESP 16–20; O2SAT 95–99
[2023-06-11 03:59] LABS: HEMATOCRIT 28.3 % (42-54); MEAN CORPUSCULAR HEMOGLOBIN 29.3 pg (27.0-33.0); MEAN CORPUSCULAR HGB CONC 33.9 g/dL (32.0-36.0); MEAN CORPUSCULAR VOLUME 86.3 fL (79-99); PLATELET COUNT (AUTO) 579 K/uL (130-400); RED BLOOD CELL COUNT(AUTO) 3.28 MIL/uL (4.50-6.20); RED CELL DISTRIBUTION WIDTH 12.7 % (11.0-15.5)
[2023-06-11 04:20] LABS: ALBUMIN 1.7 g/dL (3.5-5.0); BAND NEUTROPHILS % (MANUAL) 1 % (0-2); BASOPHILS % (MANUAL) 2 % (0-2); BILIRUBIN,TOTAL 0.2 mg/dL (0.2-1.0); CREATININE 0.5 mg/dL (0.5-1.5); EOSINOPHILS % (MANUAL) 4 % (1-6); LYMPHOCYTES % (MANUAL) 6 % (22-44); MAGNESIUM 1.6 mg/dL (1.80-2.40); MONOCYTES % (MANUAL) 5 % (2-9); PHOSPHORUS 3.8 mg/dL (2.5-4.9); POTASSIUM 3.9 mmol/L (3.5-5.1); SEGMENTED NEUTROPHILS % 82 % (40-70); TOTAL CELLS COUNTED 100; TOTAL PROTEIN, SERUM 6.6 g/dL (6.0-8.3)
[2023-06-11 04:21] LABS: MAN.DIFF COMMENT-IMPRESSION MANUAL DIFFERENTIAL
[2023-06-12] VITALS (14 sets, daily range): BP systolic 83–109; BP diastolic 49–74; PULSE 85–99; RESP 16–22; O2SAT 92–98
[2023-06-12 03:59] LABS: BASOPHILS # (AUTO) 0.11 K/uL (0.00-0.20); BASOPHILS % (AUTO) 0.9 % (0.0-5.0); EOSINOPHILS # (AUTO) 0.27 K/uL (0.00-0.70); EOSINOPHILS % (AUTO) 2.2 % (0.0-8.0); IMMATURE GRANULOCYTE ABSOLUTE 0.12 K/uL (0-1); LYMPHOCYTES # (AUTO) 1.3 K/uL (1.0-4.8); MEAN CORPUSCULAR HEMOGLOBIN 29.2 pg (27.0-33.0); MEAN CORPUSCULAR HGB CONC 33.8 g/dL (32.0-36.0); MEAN CORPUSCULAR VOLUME 86.3 fL (79-99); MONOCYTES # (AUTO) 0.9 K/uL (0.1-1.0); NEUTROPHILS # (AUTO) 9.5 K/uL (1.8-7.7); NEUTROPHILS % (AUTO) 77.9 % (40.0-77.0); PLATELET COUNT (AUTO) 545 K/uL (130-400); RED BLOOD CELL COUNT(AUTO) 3.36 MIL/uL (4.50-6.20); RED CELL DISTRIBUTION WIDTH 12.8 % (11.0-15.5); WHITE BLOOD COUNT (AUTO) 12.2 K/uL (4.8-10.8)
[2023-06-12 04:09] LABS: CREATININE 0.7 mg/dL (0.5-1.5); MAGNESIUM 1.7 mg/dL (1.80-2.40); POTASSIUM 4.1 mmol/L (3.5-5.1)
[2023-06-12] MEDS: FLUOXETINE HCL 20 MG CAPSULE PO SCH (17:07)
[2023-06-13] VITALS (14 sets, daily range): BP systolic 91–102; BP diastolic 55–69; PULSE 86–123; RESP 16–21; O2SAT 96–98
[2023-06-13 04:17] LABS: HEMATOCRIT 30.1 % (42-54); MEAN CORPUSCULAR HEMOGLOBIN 29.3 pg (27.0-33.0); MEAN CORPUSCULAR HGB CONC 34.2 g/dL (32.0-36.0); MEAN CORPUSCULAR VOLUME 85.8 fL (79-99); RED BLOOD CELL COUNT(AUTO) 3.51 MIL/uL (4.50-6.20); RED CELL DISTRIBUTION WIDTH 12.9 % (11.0-15.5); WHITE BLOOD COUNT (AUTO) 10.5 K/uL (4.8-10.8)
[2023-06-13 04:23] LABS: CREATININE 0.5 mg/dL (0.5-1.5); POTASSIUM 4.1 mmol/L (3.5-5.1)
[2023-06-13 16:35] LABS: ABG BASE EXCESS -0.6 mmol/L (-2.0-3.0); ABG HCO3 23.5 mmol/L (21.0-28.0); ABG OXYGEN SATURATION 92.3 % (95.0-99.0); ABG PCO2 37 mmHg (35-48); ABG PH 7.419 (7.35-7.450); PO2, ARTERIAL BG 61.9 mmHg (83.0-108.0); VENT MODE, BG NC (ROOM AIR)
[2023-06-13] MEDS ORDERED: IOHEXOL 350 MG/ML 100ML INFUS..BTL IV ONE (16:57)
[2023-06-14] VITALS (13 sets, daily range): BP systolic 86–101; BP diastolic 53–68; PULSE 53–112; RESP 17–22; O2SAT 89–97
[2023-06-14 04:21] LABS: BASOPHILS # (AUTO) 0.11 K/uL (0.00-0.20); BASOPHILS % (AUTO) 0.8 % (0.0-5.0); EOSINOPHILS # (AUTO) 0.52 K/uL (0.00-0.70); EOSINOPHILS % (AUTO) 3.7 % (0.0-8.0); HEMATOCRIT 31.3 % (42-54); IMMATURE GRANULOCYTE ABSOLUTE 0.13 K/uL (0-1); MEAN CORPUSCULAR HEMOGLOBIN 29.5 pg (27.0-33.0); MEAN CORPUSCULAR HGB CONC 33.9 g/dL (32.0-36.0); MEAN CORPUSCULAR VOLUME 87.2 fL (79-99); MONOCYTES # (AUTO) 1.2 K/uL (0.1-1.0); MONOCYTES % (AUTO) 8.2 % (3.0-13.0); NEUTROPHILS # (AUTO) 10.2 K/uL (1.8-7.7); NEUTROPHILS % (AUTO) 72.4 % (40.0-77.0); PLATELET COUNT (AUTO) 546 K/uL (130-400); RED BLOOD CELL COUNT(AUTO) 3.59 MIL/uL (4.50-6.20)
[2023-06-14 04:39] LABS: ALBUMIN 1.9 g/dL (3.5-5.0); BILIRUBIN,TOTAL 0.2 mg/dL (0.2-1.0); CREATININE 0.6 mg/dL (0.5-1.5); MAGNESIUM 1.6 mg/dL (1.80-2.40); TOTAL PROTEIN, SERUM 6.3 g/dL (6.0-8.3)
[2023-06-14 04:40] LABS: B-TYPE NATRIURETIC PEPTIDE 10 pg/mL (0-100)
[2023-06-14] MEDS: LACTATED RINGERS 1000ML 1,000 ML IV SCH (12:18)
[2023-06-14] MEDS: MIDODRINE HCL 5 MG TABLET PO SCH (13:56)
[2023-06-15] VITALS (16 sets, daily range): BP systolic 97–118; BP diastolic 61–76; PULSE 77–104; RESP 17–22; O2SAT 32–96
[2023-06-15 04:11] LABS: BASOPHILS # (AUTO) 0.11 K/uL (0.00-0.20); BASOPHILS % (AUTO) 1.1 % (0.0-5.0); EOSINOPHILS # (AUTO) 0.67 K/uL (0.00-0.70); EOSINOPHILS % (AUTO) 6.6 % (0.0-8.0); HEMATOCRIT 29.3 % (42-54); IMMATURE GRANULOCYTE ABSOLUTE 0.08 K/uL (0-1); LYMPHOCYTES # (AUTO) 1.6 K/uL (1.0-4.8); LYMPHOCYTES % (AUTO) 16.2 % (21.0-51.0); MEAN CORPUSCULAR HEMOGLOBIN 29.1 pg (27.0-33.0); MEAN CORPUSCULAR HGB CONC 33.8 g/dL (32.0-36.0); MEAN CORPUSCULAR VOLUME 86.2 fL (79-99); MONOCYTES % (AUTO) 10.1 % (3.0-13.0); NEUTROPHILS # (AUTO) 6.6 K/uL (1.8-7.7); NEUTROPHILS % (AUTO) 65.2 % (40.0-77.0); PLATELET COUNT (AUTO) 512 K/uL (130-400); RED CELL DISTRIBUTION WIDTH 13.3 % (11.0-15.5); WHITE BLOOD COUNT (AUTO) 10.1 K/uL (4.8-10.8)
[2023-06-15 04:37] LABS: CREATININE 0.4 mg/dL (0.5-1.5); MAGNESIUM 1.6 mg/dL (1.80-2.40); PHOSPHORUS 3.4 mg/dL (2.5-4.9); POTASSIUM 3.6 mmol/L (3.5-5.1)
[2023-06-16] VITALS (9 sets, daily range): BP systolic 106–118; BP diastolic 67–77; PULSE 86–104; RESP 16–20; O2SAT 93–97
[2023-06-16 06:22] LABS: BASOPHILS # (AUTO) 0.13 K/uL (0.00-0.20); BASOPHILS % (AUTO) 1.2 % (0.0-5.0); EOSINOPHILS # (AUTO) 0.72 K/uL (0.00-0.70); EOSINOPHILS % (AUTO) 6.8 % (0.0-8.0); HEMATOCRIT 32.2 % (42-54); IMMATURE GRANULOCYTE ABSOLUTE 0.08 K/uL (0-1); LYMPHOCYTES # (AUTO) 1.8 K/uL (1.0-4.8); MEAN CORPUSCULAR HEMOGLOBIN 29.5 pg (27.0-33.0); MEAN CORPUSCULAR HGB CONC 32.9 g/dL (32.0-36.0); MEAN CORPUSCULAR VOLUME 89.7 fL (79-99); MONOCYTES # (AUTO) 0.8 K/uL (0.1-1.0); MONOCYTES % (AUTO) 7.8 % (3.0-13.0); NEUTROPHILS % (AUTO) 66.4 % (40.0-77.0); PLATELET COUNT (AUTO) 425 K/uL (130-400); RED BLOOD CELL COUNT(AUTO) 3.59 MIL/uL (4.50-6.20); RED CELL DISTRIBUTION WIDTH 13.7 % (11.0-15.5); WHITE BLOOD COUNT (AUTO) 10.6 K/uL (4.8-10.8)
[2023-06-16 06:40] LABS: CREATININE 0.5 mg/dL (0.5-1.5); POTASSIUM 4.2 mmol/L (3.5-5.1)
[2023-06-17] VITALS (15 sets, daily range): BP systolic 99–117; BP diastolic 58–80; PULSE 86–122; RESP 16–22; O2SAT 93–98
[2023-06-17 04:30] LABS: BASOPHILS % (AUTO) 0.8 % (0.0-5.0); EOSINOPHILS # (AUTO) 0.24 K/uL (0.00-0.70); EOSINOPHILS % (AUTO) 1.9 % (0.0-8.0); HEMATOCRIT 32.9 % (42-54); IMMATURE GRANULOCYTE ABSOLUTE 0.13 K/uL (0-1); LYMPHOCYTES # (AUTO) 1.8 K/uL (1.0-4.8); LYMPHOCYTES % (AUTO) 14.1 % (21.0-51.0); MEAN CORPUSCULAR HEMOGLOBIN 29.3 pg (27.0-33.0); MEAN CORPUSCULAR HGB CONC 33.4 g/dL (32.0-36.0); MEAN CORPUSCULAR VOLUME 87.7 fL (79-99); MONOCYTES # (AUTO) 1.1 K/uL (0.1-1.0); MONOCYTES % (AUTO) 8.6 % (3.0-13.0); NEUTROPHILS # (AUTO) 9.4 K/uL (1.8-7.7); NEUTROPHILS % (AUTO) 73.6 % (40.0-77.0); PLATELET COUNT (AUTO) 460 K/uL (130-400); RED BLOOD CELL COUNT(AUTO) 3.75 MIL/uL (4.50-6.20); WHITE BLOOD COUNT (AUTO) 12.7 K/uL (4.8-10.8)
[2023-06-17 04:50] LABS: ALBUMIN 2.1 g/dL (3.5-5.0); BILIRUBIN,TOTAL 0.2 mg/dL (0.2-1.0); CREATININE 0.5 mg/dL (0.5-1.5); MAGNESIUM 1.7 mg/dL (1.80-2.40); POTASSIUM 3.7 mmol/L (3.5-5.1); TOTAL PROTEIN, SERUM 6.2 g/dL (6.0-8.3)
[2023-06-18] VITALS (14 sets, daily range): BP systolic 99–116; BP diastolic 62–73; PULSE 88–103; RESP 16–22; O2SAT 95–97
[2023-06-18 05:10] LABS: HEMATOCRIT 33.3 % (42-54); MEAN CORPUSCULAR HEMOGLOBIN 29.4 pg (27.0-33.0); MEAN CORPUSCULAR HGB CONC 33.6 g/dL (32.0-36.0); MEAN CORPUSCULAR VOLUME 87.4 fL (79-99); RED BLOOD CELL COUNT(AUTO) 3.81 MIL/uL (4.50-6.20); RED CELL DISTRIBUTION WIDTH 14.3 % (11.0-15.5); WHITE BLOOD COUNT (AUTO) 9.8 K/uL (4.8-10.8)
[2023-06-18 05:24] LABS: ALBUMIN 2.2 g/dL (3.5-5.0); BILIRUBIN,TOTAL 0.2 mg/dL (0.2-1.0); CREATININE 0.5 mg/dL (0.5-1.5); POTASSIUM 4.2 mmol/L (3.5-5.1); TOTAL PROTEIN, SERUM 6.5 g/dL (6.0-8.3)
[2023-06-19] VITALS (12 sets, daily range): BP systolic 98–115; BP diastolic 48–71; PULSE 63–99; RESP 16–19; O2SAT 94–97
[2023-06-19 04:00] LABS: BASOPHILS # (AUTO) 0.13 K/uL (0.00-0.20); BASOPHILS % (AUTO) 1.3 % (0.0-5.0); EOSINOPHILS # (AUTO) 0.73 K/uL (0.00-0.70); EOSINOPHILS % (AUTO) 7.6 % (0.0-8.0); HEMATOCRIT 35.6 % (42-54); LYMPHOCYTES # (AUTO) 1.9 K/uL (1.0-4.8); LYMPHOCYTES % (AUTO) 19.7 % (21.0-51.0); MEAN CORPUSCULAR HEMOGLOBIN 29.3 pg (27.0-33.0); MEAN CORPUSCULAR HGB CONC 32.9 g/dL (32.0-36.0); MONOCYTES % (AUTO) 10.7 % (3.0-13.0); NEUTROPHILS # (AUTO) 5.8 K/uL (1.8-7.7); NEUTROPHILS % (AUTO) 59.7 % (40.0-77.0); PLATELET COUNT (AUTO) 468 K/uL (130-400); RED CELL DISTRIBUTION WIDTH 14.3 % (11.0-15.5); WHITE BLOOD COUNT (AUTO) 9.7 K/uL (4.8-10.8)
[2023-06-19 04:28] LABS: ALBUMIN 2.3 g/dL (3.5-5.0); BILIRUBIN,TOTAL 0.2 mg/dL (0.2-1.0); CREATININE 0.6 mg/dL (0.5-1.5); POTASSIUM 3.9 mmol/L (3.5-5.1); TOTAL PROTEIN, SERUM 6.7 g/dL (6.0-8.3)
[2023-06-20] VITALS (12 sets, daily range): BP systolic 93–113; BP diastolic 57–76; PULSE 65–111; RESP 16–22; O2SAT 95–96
[2023-06-20 15:44] LABS: ABG BASE EXCESS 1.7 mmol/L (-2.0-3.0); ABG HCO3 25.6 mmol/L (21.0-28.0); ABG OXYGEN SATURATION 90.7 % (95.0-99.0); ABG PCO2 38 mmHg (35-48); ABG PH 7.447 (7.35-7.450); PO2, ARTERIAL BG 56.4 mmHg (83.0-108.0); VENT MODE, BG NC (ROOM AIR)
[2023-06-20 18:38] LABS: HEMOGLOBIN A1C 9.8 % (4.0-6.0)
[2023-06-21] VITALS (12 sets, daily range): BP systolic 92–113; BP diastolic 55–70; PULSE 92–113; RESP 16–21; O2SAT 92–98
[2023-06-21] MEDS ORDERED: ZINC220C6 PO (10:16)
[2023-06-21] MEDS ORDERED: ALBU6.7H14 IH (10:16)
[2023-06-21] MEDS ORDERED: Midodrine Hcl PO (10:16)
[2023-06-21] MEDS ORDERED: FLUO20CA36 PO (10:16)
[2023-06-21] MEDS ORDERED: THIA100T75 PO (10:16)
[2023-06-21] MEDS ORDERED: INSLAN SQ (10:16)
[2023-06-22] VITALS (14 sets, daily range): BP systolic 99–112; BP diastolic 59–70; PULSE 72–133; RESP 17–24; O2SAT 32–97
[2023-06-22 02:57] LABS: HEMATOCRIT 34.3 % (42-54); MEAN CORPUSCULAR HEMOGLOBIN 29.7 pg (27.0-33.0); MEAN CORPUSCULAR HGB CONC 33.5 g/dL (32.0-36.0); MEAN CORPUSCULAR VOLUME 88.6 fL (79-99); PLATELET COUNT (AUTO) 394 K/uL (130-400); RED BLOOD CELL COUNT(AUTO) 3.87 MIL/uL (4.50-6.20); RED CELL DISTRIBUTION WIDTH 14.6 % (11.0-15.5); WHITE BLOOD COUNT (AUTO) 11.4 K/uL (4.8-10.8)
[2023-06-22 03:15] LABS: CREATININE 0.7 mg/dL (0.5-1.5); MAGNESIUM 1.7 mg/dL (1.80-2.40); POTASSIUM 3.9 mmol/L (3.5-5.1)
[2023-06-22 06:29] LABS: EOSINOPHILS % (MANUAL) 7 % (1-6); LYMPHOCYTES % (MANUAL) 7 % (22-44); MAN.DIFF COMMENT-IMPRESSION MANUAL DIFFERENTIAL; MONOCYTES % (MANUAL) 13 % (2-9); REACTIVE LYMPHOCYTES 1 % (0-0); SEGMENTED NEUTROPHILS % 72 % (40-70); TOTAL CELLS COUNTED 100; WBC MORPHOLOGY REACTIVE LYMPHS 1+
[2023-06-22 06:32] LABS: PLATELET MORPHOLOGY COMMENT ADEQUATE
[2023-06-23] VITALS (13 sets, daily range): BP systolic 93–115; BP diastolic 61–70; PULSE 91–103; RESP 17–19; O2SAT 96–99
[2023-06-24] VITALS (10 sets, daily range): BP systolic 91–105; BP diastolic 58–65; PULSE 97–107; RESP 15–19; O2SAT 96–99
[2023-06-25] VITALS (7 sets, daily range): BP systolic 91–118; BP diastolic 57–77; PULSE 73–107; RESP 16–18; O2SAT 96–97
[2023-06-25 04:13] LABS: HEMATOCRIT 38.3 % (42-54); MEAN CORPUSCULAR HEMOGLOBIN 29.9 pg (27.0-33.0); MEAN CORPUSCULAR HGB CONC 33.9 g/dL (32.0-36.0); RED BLOOD CELL COUNT(AUTO) 4.35 MIL/uL (4.50-6.20); RED CELL DISTRIBUTION WIDTH 14.5 % (11.0-15.5); WHITE BLOOD COUNT (AUTO) 13.1 K/uL (4.8-10.8)
[2023-06-25 04:21] LABS: CREATININE 0.4 mg/dL (0.5-1.5); POTASSIUM 3.8 mmol/L (3.5-5.1)
== END 2023-06-25 14:29 | disposition home or self-care (01) | DRG 871 ==
LOC: EDH 18:31 → EDHIP 18:32 → 2CH 05-24 01:14 → 2AH 06-04 08:57 → 4AH 06-10 15:40
PROVIDERS: ADMIT Internal Medicine; ATTEND Internal Medicine
PROC: 5A09357 Assistance with Respiratory Ventilation, Less than 24 Consecutive Hours, Continuous Positive Airway Pressure (ICD-10-PCS; 2023-05-24)
PROC: 5A09357 Assistance with Respiratory Ventilation, Less than 24 Consecutive Hours, Continuous Positive Airway Pressure (ICD-10-PCS; 2023-05-25)
PROC: 5A09357 Assistance with Respiratory Ventilation, Less than 24 Consecutive Hours, Continuous Positive Airway Pressure (ICD-10-PCS; 2023-05-26)
PROC: 5A09357 Assistance with Respiratory Ventilation, Less than 24 Consecutive Hours, Continuous Positive Airway Pressure (ICD-10-PCS; 2023-05-27)
PROC: 5A09357 Assistance with Respiratory Ventilation, Less than 24 Consecutive Hours, Continuous Positive Airway Pressure (ICD-10-PCS; 2023-05-28)
PROC: 0B9J8ZX Drainage of Left Lower Lung Lobe, Via Natural or Artificial Opening Endoscopic, Diagnostic (ICD-10-PCS; principal; 2023-05-29)
PROC: 0B9C8ZX Drainage of Right Upper Lung Lobe, Via Natural or Artificial Opening Endoscopic, Diagnostic (ICD-10-PCS; 2023-05-29)
PROC: 0B9G8ZX Drainage of Left Upper Lung Lobe, Via Natural or Artificial Opening Endoscopic, Diagnostic (ICD-10-PCS; 2023-05-29)
PROC: 0B9D8ZX Drainage of Right Middle Lung Lobe, Via Natural or Artificial Opening Endoscopic, Diagnostic (ICD-10-PCS; 2023-05-29)
PROC: 0B9F8ZX Drainage of Right Lower Lung Lobe, Via Natural or Artificial Opening Endoscopic, Diagnostic (ICD-10-PCS; 2023-05-29)
PROC: 5A09357 Assistance with Respiratory Ventilation, Less than 24 Consecutive Hours, Continuous Positive Airway Pressure (ICD-10-PCS; 2023-05-29)
DX: A41.01 Sepsis due to Methicillin susceptible Staphylococcus aureus (principal); E11.10 Type 2 diabetes mellitus with ketoacidosis without coma; J96.01 Acute respiratory failure with hypoxia; R65.21 Severe sepsis with septic shock; J12.9 Viral pneumonia, unspecified; J15.211 Pneumonia due to Methicillin susceptible Staphylococcus aureus; J10.08 Influenza due to other identified influenza virus with other specified pneumonia; N17.9 Acute kidney failure, unspecified; A04.72 Enterocolitis due to Clostridium difficile, not specified as recurrent; J47.0 Bronchiectasis with acute lower respiratory infection; R64 Cachexia; Z20.822 Contact with and (suspected) exposure to COVID-19; J02.0 Streptococcal pharyngitis; E83.51 Hypocalcemia; B95.0 Streptococcus, group A, as the cause of diseases classified elsewhere; E11.22 Type 2 diabetes mellitus with diabetic chronic kidney disease; E83.42 Hypomagnesemia; E87.6 Hypokalemia; F41.9 Anxiety disorder, unspecified; D64.9 Anemia, unspecified; I12.9 Hypertensive chronic kidney disease with stage 1 through stage 4 chronic kidney disease, or unspecified chronic kidney disease; M06.9 Rheumatoid arthritis, unspecified; N18.9 Chronic kidney disease, unspecified; Z51.5 Encounter for palliative care; Z86.74 Personal history of sudden cardiac arrest; Z75.3 Unavailability and inaccessibility of health-care facilities; Z59.7 Insufficient social insurance and welfare support
CPT/HCPCS: 31624; 31645; 36415; 36600; 71045; 71250; 71270; 74176; 76000; 76770; 80048; 80051; 80053; 80061; 80305; 81001; 82010; 82103; 82104; 82306; 82435; 82533; 82550; 82570; 82803; 82947; 82948; 83036; 83540; 83550; 83605; 83735; 83874; 83880; 83935; 84100; 84132; 84145; 84295; 84300; 84425; 84439; 84443; 84481; 84484; 84550; 85018; 85025; 85027; 85610; 85651; 85730; 85732; 86038; 86140; 86215; 86235; 86255; 86431; 86480; 86701; 87040; 87071; 87077; 87116; 87186; 87205; 87206; 87324; 87390; 87635; 87804; 87880; 88112; 88305; 88312; 92950; 93005; 93306; 94002; 94003; 94640; 94660; 94664; 94667; 94668; 94760; A4357; A4606; B4082; C1894; C9113; G0378; J0171; J0295; J0330; J0610; J0692; J0696; J1450; J1644; J1650; J1815; J1956; J2371; J2405; J2543; J2704; J3370; J3475; J3480; J3490; J7030; J7070; J7120; J7608; Q9967; A4215; A4222; A4223; A4600; A4657; A7002; A9900; J0690